=== PATIENT | female | born 1940 ===

== ENCOUNTER 2022-09-19 09:20 | Outpatient (CLI) | payer OTHER | END 2022-09-19 09:21 | disposition home or self-care (01) | LOC: CT 09:20 | PROVIDERS: ATTEND Otolaryngology Plastic Surgery within the Head & Neck | DX: H90.3 Sensorineural hearing loss, bilateral (principal); H93.8X3 Other specified disorders of ear, bilateral | CPT/HCPCS: 70480 ==